=== PATIENT | male | born 1965 | race Caucasian/White ===

== ENCOUNTER 2020-11-27 11:19 | Emergency (ER) | payer OTHER, SELFPAY ==
--- NOTE | 2020-11-27 11:40 | ED_ITS ---
HPI - Extremity Injury (Lower) <TAMEKA Ross - Last Filed: 11/27/20 13:01> General Chief Complaint: Extremity Problem,Nontraumatic Stated Complaint: right knee pain x2 months Time Seen by Provider: 11/27/20 11:32 Source: patient Mode of arrival: Ambulatory Limitations: no limitations History of Present Illness HPI Narrative: The patient is a 55-year-old male who denies pertinent medical history, states he does not go to doctors who presents with a chief complaint of right knee pain ongoing for the past 2 months. He denies any specific injury, thinks it is an overuse injury related to work and being on his feet. He denies any falls or trauma. He states that he felt tugging sensation the medial aspect of his knee last night. Last night it got swollen, but that is improved. He has not taken any Tylenol, Motrin and has applied ice once over the past 2 months. He presents ambulatory. Related Data Previous Rx's Medication Instructions Recorded ketorolac 10 mg PO TID PRN #14 tab 11/27/20 Review of Systems <TAMEKA Ross - Last Filed: 11/27/20 13:01> Review of Systems Narrative: GENERAL: Denies chills, fatigue, malaise, fever, sweats. HEENT: Denies sinus pain, ear pain, sore throat, difficulty swallowing, dizziness. RESPIRATORY: Denies dyspnea, cough, wheezing, hemoptysis, sputum. CARDIOVASCULAR: Denies chest pain, palpitations, orthopnea, edema, GASTROINTESTINAL: Denies nausea, vomiting, abdominal pain, diarrhea, constipation, melena. : Denies dysuria, frequency, incontinence, hematuria, urinary retention. MUSCULOSKELETAL: See HPI SKIN: Denies rash, skin lesions, or other NEUROLOGIC: Denies weakness, headache, numbness, change in speech, confusion, seizures, incoordination. PSYCHIATRIC: No concerning psychosocial issues. 12 point review of systems is negative except for those stated above Patient History <TAMEKA Ross - Last Filed: 11/27/20 13:01> Social History Smoking Status: Never smoker Exam <TAMEKA Ross - Last Filed: 11/27/20 13:01> Narrative Exam Narrative: GENERAL: This is a well-nourished, well-developed patient, in no acute distress HEAD: Atraumatic. Normocephalic. No temporal or scalp tenderness. EYES: Pupils equal round and reactive. Extraocular motions intact. No scleral icterus. No injection or drainage. ENT: Nose without bleeding, purulent drainage or septal hematoma. Wearing a mask. Airway patent. CARDIOVASCULAR: Regular rate and rhythm RESPIRATORY: No cough. No increased respiratory effort. No accessory muscle use EXTREMITIES: Slight pain to palpation medial aspect of right knee, able to fully flex and extend, weightbear, positive pedal pulses. Negative anterior, posterior, varus, valgus. BACK: Nontender without deformity or crepitance. No flank tenderness. NEURO: AOx3. SKIN: No rash or erythema on visible skin Initial Vital Signs Initial Vital Signs: Vital Signs Temperature 97.8 F 11/27/20 11:42 Pulse Rate 74 11/27/20 11:42 Respiratory Rate 16 11/27/20 11:42 Blood Pressure 144/100 H 11/27/20 11:42 Pulse Oximetry 99 11/27/20 11:42 <Yris Crouch DO - Last Filed: 11/28/20 08:12> Initial Vital Signs Initial Vital Signs: Vital Signs Temperature 97.8 F 11/27/20 11:42 Pulse Rate 74 11/27/20 11:42 Respiratory Rate 16 11/27/20 11:42 Blood Pressure 144/100 H 11/27/20 11:42 Pulse Oximetry 99 11/27/20 11:42 Scores <TAMEKA Ross - Last Filed: 11/27/20 13:01> GCS [place] coma scale eye opening: Spontaneous Casimiro coma scale verbal response: Orientated Casimiro coma scale motor response: Obey commands Casimiro coma scale total score: 15 Course <TAMEKA Ross - Last Filed: 11/27/20 13:01> Orders Ordered: ED Orders 11/27/20 11:38 XR knee RT 3V Stat Vital Signs Vital signs: Vital Signs - 8 hr 11/27/20 11:42 Temperature 97.8 F Pulse Rate 74 Respiratory Rate 16 Blood Pressure 144/100 H Pulse Oximetry 99 <Yris Crouch DO - Last Filed: 11/28/20 08:12> Orders Ordered: ED Orders 11/27/20 11:38 XR knee RT 3V Stat Vital Signs Vital signs: Vital Signs - 8 hr 11/27/20 11:42 Temperature 97.8 F Pulse Rate 74 Respiratory Rate 16 Blood Pressure 144/100 H Pulse Oximetry 99 [facility] - Extremity Injury (Lower) <TAMEKA Ross - Last Filed: 11/27/20 13:01> Imaging Data Extremity x-ray #1: Radiologist's Impression: [address] [place] [id number] ReportSigned Patient: Felipe Booth JMR#: [id number]: 1965Acct:[id number]/Sex: 55 / MDate of Service: 11/27/20Loc: EDAccession Number: [id number] Procedure: XR knee RT 3V Ordering Provider: Charley Quesada PROCEDURE: XR KNEE RT 3V INDICATIONS: right knee pain TECHNIQUE: 3 views of the knee were acquired. COMPARISON: None. FINDINGS: Bones: No fractures or dislocations. No suspicious bony lesions. Enthesophyte formation in superior patella at quadriceps tendon insertion is seen. Soft tissues: Moderate suprapatellar joint effusion is seen.. No suspicious soft tissue calcifications. IMPRESSION: No acute right knee fracture or dislocation. Moderate joint effusion. Dictated by: Vaughn Andres M.D. on 11/27/2020 at 10:59 Approved by: Vaughn Andres M.D. on 11/27/2020 at 11:19 [facility] Narrative Medical decision making narrative: The patient is a 55-year-old male who presents with a chief complaint of 2 months of right knee pain. He is neurovascularly intact. He is very ambulatory. X-ray has no acute findings. Overall exam is benign. I encouraged rest ice compression elevation, prescription of ketorolac, then follow up with primary care provider. Discussed that it would be good to have a PCP at this point for primary care. Patient has no questions or concerns upon discharge states understanding return precautions as well as follow-up care. He declines a work note on discharge. Discharge Plan Departure Patient Disposition: Home Clinical Impression: Acute pain of right knee Instructions: How To Perform RICE (Rest, Ice, Compress, Elevate), DI for Knee Pain Activity Restrictions/Additional Instructions: As I discussed, your x-ray shows no acute fracture. This does not rule out a soft tissue injury such as a ligament or tendon injury. It is important that you follow up with primary care provider, especially if worsening or no improvement. There can be fractures that did not show up on initial x-ray. Please use rest ice compression elevation. I did send a prescription of ketorolac or Toradol which is an NSAID to [facility]. I have given you a prescription of Toradol. This is an NSAID. Do not combine it with other NSAIDs such as Aleve or ibuprofen. I suggest taking it with some food, as it can irritate your stomach. Please follow-up with primary care Provider in the next few days. Please come back to the emergency department for any acute concerns. Prescriptions: New ketorolac 10 mg tablet 10 mg PO TID PRN (Reason: pain) Qty: 14 RF: 0 Referrals: [facility] [Outside] <Yris Crouch DO - Last Filed: 11/28/20 08:12> [facility] ED Attending [place]sen Attestation: I was immediately available in the department for consultation. Documentation has been reviewed. I agree with assessment and plan.
[2020-11-27 11:42] VITALS: BP 144/100; PULSE 74; RESP 16; TEMP 36.6; O2SAT 99; BMI 28.2
[2020-11-27 13:13] VITALS: BP 135/80; PULSE 78; RESP 16; O2SAT 99
== END 2020-11-27 13:13 | disposition home or self-care (01) ==
PROVIDERS: Emergency Provider Nurse Practitioner Family
DX: M25.561 Pain in right knee (principal)
CPT/HCPCS: 73562; 99283

== ENCOUNTER → 2020-12-25 09:02 | Outpatient (CLI) | payer OTHER, SELFPAY ==
--- NOTE | 2020-12-25 09:04 | DI.MRI.S_ITS ---
PROCEDURE: MR KNEE RT WO CON INDICATIONS: Persistent and progressive right knee pain with swelling TECHNIQUE: Noncontrast sagittal PD fast spin echo and T2 fast spin echo with fat saturation, sagittal 3-D FLASH with fat saturation; coronal T1 spin echo and PD fast spin echo with fat saturation, and axial PD fast spin echo with fat saturation through the knee. COMPARISON: [facility], CR, XR KNEE RT 3V, 11/27/2020, 11:43. FINDINGS: Image quality: There is magnetic susceptibility artifact within the proximal patellar tendon. Menisci: There is an inferior flap tear involving the body and posterior horn of the medial meniscus with slight peripheral extrusion of the torn fragment into the medial gutter. Mild fraying is also demonstrated along the inferior articular surface of the posterior horn. Lateral meniscus demonstrates mild degenerative signal extending to the free edge in the body suggestive of mild degenerative tearing. The meniscal root ligaments appear intact. Cruciate ligaments: The anterior and posterior cruciate ligaments appear intact. Medial structures: The medial collateral ligament appears intact. There is mild edema along the medial capsule likely representing reactive changes. The semimembranosus tendon insertions and meniscocapsular junction appear intact. Visualized portions of the pes anserinus tendons appear intact without associated bursal fluid collections. Lateral structures: The lateral collateral ligament, long and short heads of the biceps femoris tendon appear intact. The popliteus tendon appears intact. Iliotibial band appears normal. Anterior structures: The quadriceps tendon appears intact. Magnetic susceptibility artifact is present within the patellar tendon proximally limiting evaluation. The visualized portions of the patellar tendon appear intact. There is moderate lateral shift and mild lateral tilt of the patella. No femoral trochlear dysplasia or ventral trochlear prominence. Bones and cartilage: No bone marrow contusions or fractures. There is mild osteophytosis. Moderate cartilage thinning is present in the patellofemoral compartment with chondral fissuring most prominent along the lateral patellar facet associated with subchondral edema. Mild fissuring is also noted along the trochlear groove. There is mild to moderate cartilage thinning demonstrated in the medial and lateral compartments with chondral fissuring demonstrated along the lateral femoral condyle and lateral tibial plateau associated with subchondral edema and cystic change. Joint space: There is a moderate joint effusion.. No Sheriff's cyst. Normal appearing synovial plicae are incidentally noted. IMPRESSION: 1. Inferior flap tear of the medial meniscus involving the body and posterior horn. 2. Moderate lateral shift and mild lateral tilt of the patella with moderate chondral degeneration laterally in the patellofemoral compartment. 3. Mild to moderate chondral degeneration in the medial and lateral compartments. 4. Moderate joint effusion. Dictated by: Livan Ingram M.D. on 12/25/2020 at 13:52 Approved by: Livan Ingram M.D. on 12/25/2020 at 14:21
== END ==
PROVIDERS: PCP Family Medicine; Referring Provider Family Medicine; Visit Provider Family Medicine
DX: M25.561 Pain in right knee (principal); S83.241A Other tear of medial meniscus, current injury, right knee, initial encounter; M25.461 Effusion, right knee
CPT/HCPCS: 73721